=== PATIENT | female | born 1970 | race Caucasian/White ===

== ENCOUNTER → 2017-10-22 13:20 | Outpatient (CLI) | payer OTHER, SELFPAY ==
--- NOTE | 2017-10-22 13:21 | HPBI_ITS ---
MAMMOGRAPHY - BILATERAL DIAGNOSTIC REASON FOR EXAM: Female, 47 years old. Left upper outer quadrant pain. Bilateral breast implants. PERTINENT HISTORY: TECHNIQUE: Digital bilateral breast meghna (3D mammographic acquisition) in the CC and MLO projections. 2-D mediolateral oblique (MLO) and craniocaudad (CC) views of both breasts were obtained. CAD: Full Field Digital Mammography with Computer Added Detection was performed. COMPARISON: Comparison is made with prior outside examination dated March 19, 2017. FINDINGS: Breast Composition: The breasts are heterogeneously dense, which may obscure small masses. There are no dominant masses or suspicious calcifications. Stable appearance of the bilateral breast prostheses. No other significant abnormalities are identified. There has been no significant change since the prior study. HPBI/DIAG MAMM W/CAD, BILAT IMPRESSION: Stable bilateral diagnostic mammogram. With the patient's history of pain in the upper outer quadrant of the left breast, correlation with ultrasound is recommended. ASSESSMENT CATEGORY: BIRADS Category 0: Incomplete. Need additional imaging evaluation. A letter regarding these results will be sent to the patient by the facility within 30 days. Approximately 10% of breast cancers are not detected by mammography. A normal mammogram should not delay biopsy of a clinically suspicious abnormality. Electronically Signed: Porter Engle MD at 14:41 EST Tel [phone], Service support ,
--- NOTE | 2017-10-22 13:21 | US_ITS ---
STUDY: ULTRASOUND BREAST - LEFT REASON FOR EXAM: Female, 47 years old. Left axillary pain. TECHNIQUE: Axial and longitudinal images of the LEFT breast were performed with a high resolution ultrasound transducer. COMPARISON: Comparison is made with prior mammogram done earlier today. FINDINGS: LEFT Breast: There is a 1.7 cm x 0.4 cm x 0.6 cm benign appearing lymph node in the axillary region of the breast. A breast implant is seen. US/Breast Limited Unilateral IMPRESSION: Benign appearing lymph node in the left axillary region. ASSESSMENT CATEGORY: BIRADS Category 2: Benign. A letter regarding these results will be sent to the patient by the facility within 30 days. Electronically Signed: Porter Engle MD at 15:01 EST Tel [phone], Service support ,
== END ==
PROVIDERS: Family Provider Family Medicine; PCP Family Medicine; Visit Provider Nurse Practitioner Women's Health
DX: N64.4 Mastodynia (principal); Z98.82 Breast implant status
CPT/HCPCS: 76642; 77062; 77066; G0279

== ENCOUNTER → 2018-07-01 14:09 | Outpatient (CLI) | payer OTHER, SELFPAY ==
--- NOTE | 2018-07-01 14:13 | VDLE_ITS ---
Reason For Study: LLE Pain RIGHT LEFT CFV is compressible, spontaneous, phasic, GSV is normal. competent and demonstrates normal CFV is compressible, spontaneous, phasic, augmentation. competent, and demonstrates normal Procedure augmentation. Exam performed in department. FV is compressible, spontaneous, phasic, A preliminary report was called and/or faxed competent and demonstrates normal to [place]. augmentation. POP V is compressible, spontaneous, phasic, competent and demonstrates normal augmentation. T/P Trunk is compressible. PTV is compressible. LT PerV is compressible. Nonvascular structure noted in Lt Pop Fossa measuring 0.91 x 1.84 x 2.44 cm. <> Interpretation Summary Deep veins of the left lower extremity are patent and compressible segmentally. There is no evidence of left lower extremity deep vein thrombosis. Valvular competence appears intact within the proximal deep venous system on the left . The left greater saphenous vein appears patent and compressible segmentally. A non-vascular, hypoechoic structure is noted in the left popliteal space, measuring 0.91 cm x 1.84 cm x 2.44 cm. This probably represents a popliteal cyst. Clinical correlation is advised. Ordering Physician: Tu Argueta Referring Physician: Tu Argueta Performed By: Zelda Conklin RVT and Student
== END ==
PROVIDERS: Family Provider Family Medicine; PCP Family Medicine; Referring Provider Physician Assistant Surgical; Visit Provider Physician Assistant Surgical
DX: M79.662 Pain in left lower leg (principal)
CPT/HCPCS: 93971

== ENCOUNTER 2018-07-24 15:30 | Outpatient (RCR) | payer OTHER, SELFPAY ==
--- NOTE | 2018-06-19 17:26 | HP.PTEVAL_ITS ---
Patient's Visit Information RACHID YOUNG is a 48 year old F referred to Physical Therapy by Kika Faustin with a diagnosis of chest wall pain. Date of Evaluation: 06/19/18 Physical Therapist: Rosio Clements - Visit Plan Frequency: 2x /Week Duration: 3 Weeks Plan: 2X/ week for 3 weeks for chest wall stretches, shoulder flexion stretches, US and MT to the intercostals of rib 3-4 B, postural exercises, scapular strength with HEP. ++Pt does have breast implants.....Do not US sternum just ribs. - Subjective Subjective: First of this year... was having some chest pain and mamogram was fine and US under the L arm and that came back fine. She feels like it is in her chest wall and some stress and tenderness in shoulders. They did an x-ray of chest and that came back fine. She has mid trap pain and shoulder blade pain and feels between her shoulder blades. SHe has no N &T or weakness. 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 screens are eye level. Pt reports that she prob never had great posture. Her pain wakes her up at night when she turns to her L side. It is more of a dull ache. - Pain neck pain Pain Intensity (Out of 10): 2 chest wall Pain Intensity (Out of 10): 5 - Objective AROM: full shoulder AROM. B shld MMT: flex 4/5 B, Abd B 4/5, ER B 4/5, IR 4- /5 B. Palpation: Tender to palpation between the 3-5th ribs B along the intercostal muscles and at the attachments to the sternum. c-spine AROM: flex 100%, Rot B 100%, SB B 100%, Ext 75%. Posture: sits with slightly rounded shoulders. No tenderness along the thoracic spine - Goals Goal 1:: I HEP Goal Time Frame: 4-6 Weeks Goal 2:: Decrease pain to occ 1/10 pain at the end of the day. Goal Time Frame: 4-6 Weeks Goal 3:: Sit with upright posture during work day per subjective Goal Time Frame: 4-6 Weeks Goal 4:: Demonstrate proper posture during treatment sessions Goal Time Frame: 4-6 Weeks - Rehabilitation Potential Rehabilitation Potential: Good - Anticipated Interventions Thank you for the opportunity to evaluate your patient. For Medicare and Medicare HMO plans, please review the plan of care and approve it. It will need to be FAXED BACK to us at [phone] for Medicare purposes. Please let me know if there are questions or concerns regarding this plan of care. Physician Signature: Date:
--- NOTE | 2018-07-24 15:46 | HP.PTDCSUM ---
HP - PT D/C Summary It has been my pleasure to treat RACHID YOUNG under orders from Kika Faustin, for the diagnosis of chest wall pain for a total of 7 visit(s). Discharge Date: 07/24/18 Please see the following information for a summary of their discharge status. - Subjective Subjective: Pt switched out the mattress and she has not had pain since then which was 07-17-18. She has changed her work station.... Pt will continue with HEP as she has been. Pt reports that she has rearranged her office and is watching her posture - Pain neck pain Pain Intensity (Out of 10): 0 chest wall Pain Intensity (Out of 10): 0 - Overall Improvement % Improvement: 100 - Objective Objective/Function: Pt sits with good posture duriing treatment sessions - Goals Goal 1:: I HEP Goal Progress: Goal Met Goal 2:: Decrease pain to occ 1/10 pain at the end of the day. Goal Progress: Goal Met Goal 3:: Sit with upright posture during work day per subjective Goal Progress: Goal Met Goal 4:: Demonstrate proper posture during treatment sessions Goal Progress: Goal Met - Plan Plan: Pt will call in within 3 weeks and let me know if her pain comes back. If it doesnt we will discharge her at that time. - D/C Information Discharge Comments: DC to HEP. Issued green band to continue with HEP If there are questions or concerns regarding this patient's physical therapy, please feel free to call me at [phone]. Thank you for the referral of this patient. Sincerely, Rosio Clements
== END 2018-07-24 19:00 | disposition home or self-care (01) ==
LOC: PT 15:30
PROVIDERS: Family Provider Family Medicine; PCP Family Medicine; Referring Provider Family Medicine; Visit Provider Family Medicine
DX: R07.89 Other chest pain (principal); R07.1 Chest pain on breathing
CPT/HCPCS: 97035; 97110; 97140; 97161; 97530

== ENCOUNTER → 2018-09-20 10:48 | Outpatient (CLI) | payer OTHER, SELFPAY ==
[2017-10-11 14:55] VITALS: BMI 19.3
--- NOTE | 2018-09-20 11:00 | EKG12_ITS ---
Test Reason : PREOP Blood Pressure : / mmHG Vent. Rate : 061 BPM Atrial Rate : 061 BPM P-R Int : 148 ms QRS Dur : 084 ms QT Int : 400 ms P-R-T Axes : 067 088 074 degrees QTc Int : 402 ms Normal sinus rhythm Normal ECG Confirmed by RAUDEL VAUGHAN, TAVIA ([id number]), writer editor SMITH GARCIA ([id number]) on 09/24/2018 8:48:21 AM Referred By: Kelvin Howell Confirmed By:TAVIA STARKS MD
[2018-09-20 11:27] LABS: Hematocrit 43.1 % (37-47); Hemoglobin 14.1 g/dl (12.0-15.0); Mean Corp Hgb Conc 32.7 g/gl (32-36); Mean Corpuscular Hgb 31.7 pg (27.0-32.0); Mean Corpuscular Volume 96.9 fL (81-99); Mean Platelet Vol. 11.5 fl (6.2-12.0); Platelet Count 230 K/mm3 (150-450); RBC Distribution Width CV 12.2 % (11.6-14.6); RBC Distribution Width SD 43.3 fl (35.1-43.9); Red Blood Count 4.45 M/mm3 (4.2-5.4); White Blood Count 5.4 K/mm3 (4.4-11.0)
[2018-09-20 11:30] LABS: Scan Indicated on CBC? Y/N NO
[2018-09-20 11:47] LABS: Anion Gap 8 (5-15); BUN 12 mg/dL (7-18); BUN/Creat Ratio 17.5 RATIO (10-20); Calcium,Total 8.8 mg/dL (8.5-10.1); Chloride 106 mmol/L (98-107); Creatinine, Serum 0.68 mg/dL (0.55-1.02); EST Glomerular Filtration Rate 98 mL/min (>60); Est Glom Filt Rate - Afr Amer 118 mL/min (>60); Glucose 77 mg/dL (74-106); Potassium 3.9 mmol/L (3.5-5.1); Sodium Level 143 mmol/L (136-145)
== END ==
PROVIDERS: Family Provider Family Medicine; PCP Family Medicine; Referring Provider Orthopaedic Surgery; Visit Provider Orthopaedic Surgery
DX: Z01.818 Encounter for other preprocedural examination (principal); Z01.810 Encounter for preprocedural cardiovascular examination
CPT/HCPCS: 36415; 80048; 85027; 93005

== ENCOUNTER 2018-11-13 15:30 | Outpatient (RCR) | payer OTHER, SELFPAY ==
--- NOTE | 2018-10-02 13:24 | HP.PTEVAL ---
Patient's Visit Information RACHID YOUNG is a 48 year old F referred to Physical Therapy by Kelvin Howell DO with a diagnosis of L medial menisectomy. Date of Evaluation: 10/02/18 Physical Therapist: Kane Sims DPT - Visit Plan Frequency: 2-3x /Week Duration: 4-6 Weeks Plan: Start with ROM of L knee including heel slides, heel prop, cycling progressing to full revolutions as tolerated, add in quad/HS/glute med activation as tolerated. Progress normalized gait pattern. May use ice/vaso as needed. - Subjective Findings: Pt. is here today for here initial evaluation with diagnosis of tear of the medial meniscus of L knee. Pt. did have surgery on Sep 25, 2018. Pt. reports not knowing how she injured it, but has been increasing in pain. Pt. reports doing some exercises since surgery, but has been icing a lot. Pt. is taking tylenol x2 per day. Pt. denies N/T in either LE. Pt. arrives today walking without AD. Pt. reports increased pain with walking and moving, but is tolerable. 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 Pt. works in [employer], and is up and down a lot at work. Pt. is hopeful to reduce symptoms in order to get back to all recreational and work activities without limitations. - Pain L knee Pain Intensity (Out of 10): 2 Pain Intensity Range: 1, 4 - Objective POSTURE: Pt. has slight increase in R lateral lean, Pt. lacks TKE on LLE in stance. PALPATION: Pt. has normal healing incisions at medial knee. Pt. has no signs of infection. Negative bib's sign. NEURO: all normal no issues with sensation of DTR. ROM: L knee 0-5-98deg. PROM 0-2-102deg. Pt. has increased soreness at end ranges. MMT: Pt. is able to complete quad set with SLR, but has ~5-10deg extensor lag, Did not test HS this date. Pt.has 4/5 hip abduction. GAIT: Pt. ambulates without AD. Pt. lacks TKE on LLE during stance phase. Pt. reports mild increase in symptoms during L stance phase. STAIRS: Pt. is able to complete with step to pattern, loading RLE only. - Goals Goal 1:: Pt. to be I with HEP. Goal Time Frame: 4-6 Weeks Goal 2:: Pt. to have increased L knee ROM to 0-0-130deg without increase in symptoms. Goal Time Frame: 4-6 Weeks Goal 3:: Pt. to walk with normalized pattern without increase in symptoms. Goal Time Frame: 4-6 Weeks Goal 4:: Pt. to negotiate steps with reciprocal pattern without increase in symptoms. Goal Time Frame: 4-6 Weeks Goal 5:: Pt. have increased LLE strength by 1/2 grade of all effected musculature. Goal Time Frame: 4-6 Weeks - Rehabilitation Potential Physical Therapy Diagnosis: Pt. has signs and symptoms S/P menisectomy. Pt. has subsequent hypombility, weakness, increased pain and difficulty walking. Pt. would benefit from PT to address above limitations progressing back to all ADLs and functional mobility without limitations. Rehabilitation Potential: Excellent - Anticipated Interventions Patient/Client Instruction: Educate patient on: Condition, Plan of Care, Risk Factors, Benefits of Fitness Program For the Purpose of:: To improve decision making, To facilitate caregiver knowledge, To improve self management, To prevent re-injury, To improve ability to perform tasks related to life management, To improve tolerance to ADL's Therapeutic Exercise to Include: Strength training, Power training, Balance training, Body mechanics, Postural training, Flexibilty training, Gait and locomotor training, Passive ROM, Active ROM, Dynamic Lumbar Stabilization For the Purpose of:: To decrease pain, To decrease swelling/inflammation, To increase ROM, To improve nutrient delivery to tissue, To increase oxygenation perfusion, To improve muscle performance and motor function, To improve ability to perform ADL's, To increase tolerance to activity/condition/position, To improve performance and independence with ADL's, To improve ability of physical actions for home/community/work/leisure, To improve gait and locomotor functions, To improve health of tissue Manual Therapy Techniques to Include: Mobilization, Passive ROM, Functional dry needling For the Purpose of:: To decrease pain, To decrease swelling/inflammation, To increase ROM IF ES: Yes Other electric stimulation: Yes Cryotherapy (ice pack, ice massage): Yes Vasopneumatic device: Yes For the Purpose of:: To decrease pain, To decrease swelling/inflammation, To increase ROM Thank you for the opportunity to evaluate your patient. For Medicare and Medicare HMO plans, please review the plan of care and approve it. It will need to be FAXED BACK to us at [phone] for Medicare purposes. For Medicare only, by signing this I certify the plan of care. Please let me know if there are questions or concerns regarding this plan of care. Physician Signature: Date:
--- NOTE | 2018-10-29 14:59 | HP.PTREVAL ---
Kelvin Howell, DO, It has been my pleasure to treat RACHID YOUNG over the last 9 visits for L medial menisectomy. Please see the progress note below for an update on the physical therapy plan of care! Subjective: Pt. reports I am like 75% better overall. pt. reports a continued feeling of tightness, but is improving. She is back to work without increase in symptoms. Pt. reporst no pain pre treatment this date. She does report occassional pain with stairs. Objective/Function: Pt. tolerated all PT without adverse reaction. She continues to progress very well. ROM: 0-0-129deg. Mild soreness stiffness at end ranges of motions. MMT: LLE- ankle 5/5 throughout; knee- ext 4/5, flexion 4/5; hip- flexion 4+/5, abd 4+/5, ext 4+/5. GAIT: Pt. ambulates with out AD, but does have reduced knee ext during stance phase, slightly. Pt. also has a tendency to have reduced knee flexion during swing phase. Pt. has occassional increase in medial knee pain, when I step wrong. Disscussed with patient about healing process and what movements to avoid. Plan Plan: At this point in time I would recommend that she continue with PT with focus on increased resistances with biking, quad/core strengthening with gradual progression back to functional mobiluty and normalized gait patterns. Goals Goal 1:: Pt. to be I with HEP. Goal Time Frame: 4-6 Weeks Goal Progress: Goal Met Goal 2:: Pt. to have increased L knee ROM to 0-0-130deg without increase in symptoms. Goal Time Frame: 4-6 Weeks Goal Progress: Progressing Goal 3:: Pt. to walk with normalized pattern without increase in symptoms. Goal Time Frame: 4-6 Weeks Goal 4:: Pt. to negotiate steps with reciprocal pattern without increase in symptoms. Goal Time Frame: 4-6 Weeks Goal Progress: Progressing Goal 5:: Pt. have increased LLE strength by 1/2 grade of all effected musculature. Goal Time Frame: 4-6 Weeks Goal Progress: Progressing Anticipated Interventions Patient/Client Instruction: Educate patient on: Condition, Plan of Care, Risk Factors, Benefits of Fitness Program For the Purpose of:: To improve decision making, To facilitate caregiver knowledge, To improve self management, To prevent re-injury, To improve ability to perform tasks related to life management, To improve tolerance to ADL's Therapeutic Exercise to Include: Strength training, Power training, Balance training, Body mechanics, Postural training, Flexibilty training, Gait and locomotor training, Passive ROM, Active ROM, Dynamic Lumbar Stabilization For the Purpose of:: To decrease pain, To decrease swelling/inflammation, To increase ROM, To improve nutrient delivery to tissue, To increase oxygenation perfusion, To improve muscle performance and motor function, To improve ability to perform ADL's, To increase tolerance to activity/condition/position, To improve performance and independence with ADL's, To improve ability of physical actions for home/community/work/leisure, To improve gait and locomotor functions, To improve health of tissue Manual Therapy Techniques to Include: Mobilization, Passive ROM, Functional dry needling For the Purpose of:: To decrease pain, To decrease swelling/inflammation, To increase ROM IF ES: Yes Other electric stimulation: Yes Cryotherapy (ice pack, ice massage): Yes Vasopneumatic device: Yes For the Purpose of:: To decrease pain, To decrease swelling/inflammation, To increase ROM Please do not hesitate to contact me at [phone] by phone or if you have questions or concerns regarding this new plan of care! Sincerely, Kane Sims DPT
--- NOTE | 2018-12-25 13:06 | HP.PTDCSUM ---
HP - PT D/C Summary It has been my pleasure to treat RACHID YOUNG under orders from Kelvin Howell DO, for the diagnosis of L medial menisectomy for a total of 11 visit(s). Discharge Date: 11/13/18 Please see the following information for a summary of their discharge status. - Subjective Subjective: Pt. reports she is doing very well with all of her HEP. Pt. reports no pain. Pt. reports being 95% better overall. Pt. to see physician next week. - Pain L knee Pain Intensity (Out of 10): 0 - Overall Improvement % Improvement: 95 - Objective Objective/Function: Pt. has progressed very well. Pt. is nolonger having any pain. She is to follow up with physician next week. Pt. is independent with her HEP and is back to all work activiteis without issues. Pt. has been educated to hold off on running for a few more months and progress with walk to run progress if pain free. Pt will be DC to HEP at this point in time. - Goals Goal 1:: Pt. to be I with HEP. Goal Progress: Goal Met Goal 2:: Pt. to have increased L knee ROM to 0-0-130deg without increase in symptoms. Goal Progress: Goal Met Goal 3:: Pt. to walk with normalized pattern without increase in symptoms. Goal Progress: Goal Met Goal 4:: Pt. to negotiate steps with reciprocal pattern without increase in symptoms. Goal Progress: Goal Met Goal 5:: Pt. have increased LLE strength by 1/2 grade of all effected musculature. Goal Progress: Goal Met - Plan Plan: Pt. to be Dc to HEP at this point in time. - D/C Information Discharge Comments: Pt. was treated for her menisectomy. Pt. was treated with ROM and knee stability exercises. Pt. progressed very well and is back to all work activities. She has yet to start running, but was educated to hold off for a few more months and progress with a walk to run program. She is independent with her current HEP and will be DC from PT at this point intime. If there are questions or concerns regarding this patient's physical therapy, please feel free to call me at [phone]. Thank you for the referral of this patient. Sincerely, Kane Sims DPT
== END 2018-11-13 19:00 | disposition home or self-care (01) ==
LOC: PT 15:30
PROVIDERS: Family Provider Family Medicine; PCP Family Medicine; Referring Provider Orthopaedic Surgery; Visit Provider Orthopaedic Surgery
DX: S83.242D Other tear of medial meniscus, current injury, left knee, subsequent encounter (principal)
CPT/HCPCS: 97110; 97161

== ENCOUNTER → 2019-01-14 17:10 | Outpatient (CLI) | payer OTHER, SELFPAY ==
--- NOTE | 2019-01-14 | CER_PTH ---
PATIENT: RACHID YOUNG LOC: [facility] U#:[id number] AGE/SX: 55/F ROOM: RE01/14/[address]: Dr. Suzan Oswald MD : 1970 BED: DIS: SPEC #: [id number] RECD: 01/14/19 16:46 STATUS: AMY DAWNShelley #: [id number] HELENA: 01/14/19 00:[address]: Suzan Oswald DEPT: SURGICAL PATHOLOGY RECD BY: Segundo Wilkes ENTERED: 01/15/19 09:28 SP TYPE: CERV OTHR DR: Dr. Kika Faustin MD Tissues: Uterine cervix, NOS Procedures: Surgery Specimen Level IV HEADER OPERATION: Cervical polyp PRE-OP DIAGNOSIS: Cervical polyp TISSUE SUBMITTED: Cervical polyp MICROSCOPIC DIAGNOSIS Cervical polyp, polypectomy: Benign endocervical polyp, inflamed. AM:halley 01/16/19 MICROSCOPIC DESCRIPTION Slides are reviewed. GROSS DESCRIPTION Received is one container labeled with the patient's name and not further designated. The specimen consists of one irregular fragment of light doran soft tissue that measures 2.2 x 0.8 x 0.2 cm. The specimen is totally submitted in one cassette. / AM:halley 01/15/19 TC:1 CPT: 99303
[2019-01-14 11:03] VITALS: BMI 20.3
[2019-01-22 16:40] LABS: HPV APTIMA, High Risk Negative (Negative)
== END ==
PROVIDERS: Family Provider Family Medicine; PCP Family Medicine; Referring Provider Obstetrics & Gynecology; Visit Provider Obstetrics & Gynecology
DX: Z12.4 Encounter for screening for malignant neoplasm of cervix (principal); N84.1 Polyp of cervix uteri
CPT/HCPCS: 87624; 88175; 88305; G0145

== ENCOUNTER → 2019-01-28 11:08 | Outpatient (CLI) | payer OTHER, SELFPAY ==
[2019-01-14 11:03] VITALS: BMI 20.3
--- NOTE | 2019-01-28 11:09 | US_ITS ---
HISTORY: Pelvic pain. History of polyps. 90 images. No prior imaging before January 28, 2019 of the pelvis. Findings: The cervix is closed. The uterus measures 10.6 x 4.9 x 7.9 cm. The cervix is closed. No large masses or fluid collections are perceived. The right ovary measures 4.2 x 2.6 x 2.3 cm. Color Doppler imaging fails to demonstrate flow to right ovarian parenchyma. Positive Doppler imaging suggests flow to right ovarian parenchyma. Right ovarian follicles are present. Stripe is measured at 14 mm. Myometrium is heterogeneous. Within the myometrium, anteriorly, abutting the urinary bladder, there is a slightly hypoechoic but homogeneous structure that measures 19 x 15 x 18 mm. Color Doppler images demonstrate flow within this structure. Is likely a subserosal uterine leiomyoma. More posteriorly within the uterus there is another structure that measures 2.2 x 1.5 x 2.4 cm. Color Doppler imaging fails to demonstrate flow on this echogenic structure with shadowing. This likely represents myometrial calcified uterine leiomyoma. Within the uterine fundus, anteriorly, there is another structure. This measures 3.5 x 3 x 2.8 cm. It demonstrates flow on color Doppler imaging. This also likely represents a uterine leiomyoma. The left ovary measures 4.9 x 2.7 x 2.7 cm. Color Doppler imaging doesn't demonstrate flow within this structure. Pulse-wave Doppler imaging suggest probable flow within this structure. There is an echogenic portion of tissue within this structure likely representing calcification. US/Transvaginal Non- IMPRESSION: Uterine leiomyomata. at 0230 Reported and signed by: Dakota Higgins MD Electronically Signed: Dakota Higgins MD at 2:29 EDT Tel , Service support ,
--- NOTE | 2019-01-28 11:09 | US_ITS ---
HISTORY: Pelvic pain. History of polyps. 90 images. No prior imaging before January 28, 2019 of the pelvis. Findings: The cervix is closed. The uterus measures 10.6 x 4.9 x 7.9 cm. The cervix is closed. No large masses or fluid collections are perceived. The right ovary measures 4.2 x 2.6 x 2.3 cm. Color Doppler imaging fails to demonstrate flow to right ovarian parenchyma. Positive Doppler imaging suggests flow to right ovarian parenchyma. Right ovarian follicles are present. Stripe is measured at 14 mm. Myometrium is heterogeneous. Within the myometrium, anteriorly, abutting the urinary bladder, there is a slightly hypoechoic but homogeneous structure that measures 19 x 15 x 18 mm. Color Doppler images demonstrate flow within this structure. Is likely a subserosal uterine leiomyoma. More posteriorly within the uterus there is another structure that measures 2.2 x 1.5 x 2.4 cm. Color Doppler imaging fails to demonstrate flow on this echogenic structure with shadowing. This likely represents myometrial calcified uterine leiomyoma. Within the uterine fundus, anteriorly, there is another structure. This measures 3.5 x 3 x 2.8 cm. It demonstrates flow on color Doppler imaging. This also likely represents a uterine leiomyoma. The left ovary measures 4.9 x 2.7 x 2.7 cm. Color Doppler imaging doesn't demonstrate flow within this structure. Pulse-wave Doppler imaging suggest probable flow within this structure. There is an echogenic portion of tissue within this structure likely representing calcification. US/Pelvic (Non ) IMPRESSION: Uterine leiomyomata. at 0230 Reported and signed by: Dakota Higgins MD Electronically Signed: Dakota Higgins MD at 2:29 EDT Tel , Service support ,
== END ==
PROVIDERS: Family Provider Family Medicine; PCP Family Medicine; Referring Provider Obstetrics & Gynecology; Visit Provider Obstetrics & Gynecology
DX: N84.2 Polyp of vagina (principal)
CPT/HCPCS: 76830; 76856; 93976

== ENCOUNTER → 2019-02-05 07:08 | Outpatient (CLI) | payer OTHER, SELFPAY ==
[2019-01-14 11:03] VITALS: BMI 20.3
[2019-02-04 12:01] VITALS: BMI 20.3
--- NOTE | 2019-02-05 07:27 | BI_ITS ---
MAMMOGRAPHY - BILATERAL SCREENING REASON FOR EXAM: Female, 48 years old. Routine annual screening examination. PERTINENT HISTORY: Grandmother with breast cancer. Breast implants. TECHNIQUE: Digital bilateral breast mic (3D mammographic acquisition) in the CC and MLO projections. 2-D mediolateral oblique (MLO) and craniocaudad (CC) views of both breasts were obtained. CAD: Full Field Digital Mammography with Computer Added Detection was performed. COMPARISON: Comparison is made with prior outside examination dated September 19, 2016. FINDINGS: Breast Composition: The breasts are heterogeneously dense, which may obscure small masses. There are no dominant masses or suspicious calcifications. Stable appearance of the bilateral breast implants. No other significant abnormalities are identified. There has been no significant change since the prior study. BI/SCREEN MAMM (CAD) W/MIC BILAT IMPRESSION: Stable bilateral screening mammogram. Yearly follow-up mammogram recommended. (A) ASSESSMENT CATEGORY: BIRADS Category 2: Benign. A letter regarding these results will be sent to the patient by the facility within 30 days. Approximately 10% of breast cancers are not detected by mammography. A normal mammogram should not delay biopsy of a clinically suspicious abnormality. [id number] Electronically Signed: Porter Engle, at 8:49 EDT , Service support ,
== END ==
PROVIDERS: Family Provider Family Medicine; PCP Family Medicine; Referring Provider Obstetrics & Gynecology; Visit Provider Obstetrics & Gynecology
DX: Z12.31 Encounter for screening mammogram for malignant neoplasm of breast (principal)
CPT/HCPCS: 77063; 77067

== ENCOUNTER 2019-05-29 06:23 | Day surgery (SDC) | payer OTHER, SELFPAY ==
[2019-02-04 12:01] VITALS: BMI 20.3
[2019-05-19 10:52] VITALS: BMI 20.3
--- NOTE | 2019-05-22 04:52 | HP.PCM_ITS ---
- Problem List (1) Abnormal uterine bleeding Status: Acute Comment: plan LAVH LUQ entry (2) Intramural uterine fibroid Status: Acute Comment: discussedlysteda, depot lupron, or lavh discussed. handouts given. 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 Is patient in pain?: No Allergies amoxicillin Allergy (Mild, Verified 02/04/19 12:00) Other clavulanic acid [From Augmentin] Allergy (Mild, Verified 02/04/19 12:00) Other erythromycin base Allergy (Mild, Verified 02/04/19 12:00) Other tramadol Adverse Reaction (Mild, Verified 05/19/19 10:51) other Medications cholecalciferol (vitamin D3) 2,000 unit capsule 2,000 unit PO ONCE 10/11/17 [History Confirmed 05/19/19] Is last menstrual period known: No Post menopausal: No Patient : No : No FORMERLY [facility], 1928–1983 Medical History (Updated 05/19/19 @ 11:11 by Suzan Oswald MD) Costochondral chest pain (Acute) Surgical History (Updated 05/19/19 @ 11:09 by Suzan Oswald MD) H/O abdominoplasty (Acute) delivery delivered (Acute) History of umbilical hernia repair (Acute) Hx of breast implants, bilateral (Acute) Family History Mother Thyroid disorder Unknown Thyroid disorder Father Dementia Hypertension CVA (cerebral vascular accident) Social History (Updated 05/19/19 @ 11:16 by Suzan Oswald MD) Smoking Status: Never smoker alcohol intake: current details: social substance use type: does not use caffeine: Yes frequency: 1-2 times per week seatbelt use: always do you feel safe at home: Yes additional social history: [facility] [facility] [employer] Patient works at [employer] pre op ERAS: Details: RACHID YOUNG is a 49 year old who presents for uterine fibroids abnormal uterine bleeding. Pregancy History 2 Elective abortions Hx Para 2 Spontaneous abortions Hx # Term Pregnancies Ectopic pregnancies Hx # Pregnancies Multiple births # of living children Past Pregnancies Del. Date Name GA/Weeks Outcome Route Bth Weight Infant Gen Labor Lgth Anesthes ia Del Locatn Provider FOB Unknown 1997 Noa Male Unknown 2002 Praneeth Male ROS Const Constitutional: Reports fatigue; denies fever(s), headache(s), increased appetite, poor appetite, weight gain or weight loss ENT ENT: Denies dry mouth GI GI: Reports as per HPI; denies abdominal pain, constipation, nausea or vomiting : Denies nipple discharge Skin Skin/Breast: Denies nipple discharge Exam Const General: cooperative, healthy appearing, comfortable, no acute distress, well developed Nutritional Appearance: average body habitus Orientation: alert HENMT Head: normal to inspection, normocephalic Ears: hearing grossly normal bilaterally, external ears normal Nose: external nose normal, nares normal Face and sinus: normal facial exam Neck Neck: normal visual inspection, no lymphadenopathy, trachea midline Thyroid: thyroid normal Resp Effort & Inspection: normal respiratory effort Musc Other: gross motor intact no deficits, full bilateral strength Skin General: no rashes or lesions noted Neuro Motor: muscle tone normal throughout Assessment & Plan Problems 1. Intramural uterine fibroid D25.1 discussedlysteda, depot lupron, or lavh discussed. handouts given. needs EMB prior to LAVH BS cysto if she desires surgical intervention 2. Abnormal uterine bleeding N93.9 plan LAVH LUQ entry Plan After discussing the patient's diagnosis and treatment plan options, patient wishes to proceed with surgical management. I have discussed with the patient the risks, benefits, and alternatives of the procedure which include but are not limited to risks of anesthesia, bleeding, infection, possible damage to bowel, bladder, or surrounding vasculature which could lead to additional surgery to evaluate any complications. Patient agrees to procedure and wishes to proceed. ACOG/uptodate references given for additional information regarding procedure. Coding Level of Care Code No Charge Diagnoses Intramural uterine fibroid D25.1 Abnormal uterine bleeding N93.9
[2019-05-29] VITALS (16 sets, daily range): BP systolic 106–142; BP diastolic 57–82; PULSE 56–80; RESP 14–20; TEMP 36.3–37.1; O2SAT 98–100; BMI 19.8
[2019-05-29 06:51] LABS: Bedside Glucose 128 mg/dL (70-110)
[2019-05-29 06:52] LABS: Internal QC Validated? YES +Cl - CLEAR BKGD
[2019-05-29] MEDS: Bupivacaine 0.25% 30 ML Vial (06:52)
[2019-05-29 06:53] LABS: Pregnancy, Urine Negative Negative
[2019-05-29 07:03] LABS: Hematocrit 44.5 % (37-47); Hemoglobin 14.4 g/dL (12.0-15.0); Mean Corp Hgb Conc 32.4 g/dL (32-36); Mean Corpuscular Hgb 31.2 pg (27.0-32.0); Mean Corpuscular Volume 96.5 fL (81-99); Mean Platelet Vol. 12.2 fl (6.2-12.0); Platelet Count 187 K/mm3 (150-450); RBC Distribution Width CV 11.9 % (11.6-14.6); RBC Distribution Width SD 41.9 fl (35.1-43.9); Red Blood Count 4.61 M/mm3 (4.2-5.4); White Blood Count 5.5 K/mm3 (4.4-11.0)
[2019-05-29] MEDS: Magnesium Sulfate 4gm/100mL 4 GM/100 ML IV.SOLN. IV (07:03)
[2019-05-29] MEDS: Lactated Ringers 1,000 ML 40 ML IV (07:04)
[2019-05-29] MEDS: Enoxaparin 40 MG/0.4 ML Syringe SC (07:04)
[2019-05-29] MEDS: dexAMETHasone 10 MG/ML Vial 8 MG IV (07:04)
[2019-05-29] MEDS: Scopolamine 1mg/72hr Patch 1 PATCH TRANSDERM. (07:05)
[2019-05-29] MEDS: Phenazopyridine 95 MG Tablet 190 MG PO (07:05)
[2019-05-29] MEDS: Acetaminophen 500 MG Tablet 1000 MG PO ×2 (07:06→14:42)
[2019-05-29] MEDS: Gabapentin 600 MG Tablet PO (07:06)
[2019-05-29] MEDS: Celecoxib 200 MG Capsule 400 MG PO (07:06)
--- NOTE | 2019-05-29 08:30 | HYST_PTH ---
PATIENT: RACHID YOUNG LOC: [facility] [place] U#:[id number] AGE/SX: 49/F ROOM: RE05/29/[address]: Dr. Suzan Oswald MD : 1970 BED: DIS: 05/30/2019 SPEC #: [id number] RECD: 05/29/19 13:17 STATUS: AMY REShelley #: [id number] HELENA: 05/29/19 08:[address]: Suzan Oswald DEPT: SURGICAL PATHOLOGY RECD BY: Segundo Wilkes ENTERED: 05/29/19 13:45 SP TYPE: HYSTERECT OTHR DR: Dr. Kika Faustin MD Tissues: Uterus, NOS Procedures: Surgery Specimen Level V HEADER OPERATION: ERAS, hysterectomy, lap-assisted vaginal, bilateral salpingectomy PRE-OP DIAGNOSIS: Intramural uterine fibroid TISSUE SUBMITTED: Uterus, cervix and bilateral fallopian tubes MICROSCOPIC DIAGNOSIS Uterus, hysterectomy: Cervix - nabothian cysts. Endometrium - secretory endometrium. Myometrium - leiomyomas and adenomyosis. Right and left fallopian tubes with focal hydrosalpinx. AM:halley 05/30/19 MICROSCOPIC DESCRIPTION Slides are reviewed. GROSS DESCRIPTION Received in fixative is one container labeled with the patient's name and designated uterus, cervix and bilateral fallopian tubes. The specimen consists of a hysterectomy specimen consisting of uterus with cervix and bilateral fallopian tubes in multiple pieces. The fallopian tubes are attached to the largest piece of uterus. The uterus with cervix weighs in aggregate 392 gm. One of the pieces consists of cervix with lower uterine segment. The cervix in this piece measures 4.5 x 2.5 x 2 cm. The ectocervical mucosa is unremarkable. The external os is oval in contour. The endocervical canal measures 4 cm in length and the endocervical mucosa is doran, glistening and unremarkable. A portion of the lower uterine segment in this piece measures 5 x 2.5 x 3 cm. A nodular mass is noted in this piece. The largest piece of the uterus measures 12 x 8 x 8 cm. The serosal surface is doran, glistening. Sections of this piece reveal a focal area of endometrial cavity and the endometrium measures 0.2 cm in thickness. Sections also reveal multiple nodular masses. The largest mass measures 6 cm in greatest dimension. Sections of additional smaller pieces of uterus also reveal multiple nodular masses. Sections of these masses reveal doran whorled cut surfaces without areas of hemorrhage, necrosis or cystic degeneration. The uterine wall measures up to 4 cm in thickness. The fallopian tube could not be oriented due to the fragmented nature of the uterus. One of the fallopian tubes measures 6 cm in length and 3.5 cm in diameter. The piece is interrupted in the middle consistent with previous tubal ligation. The tubal end is identified. Sections reveal unremarkable cut surfaces. A focal area of fallopian tube also reveals a lumen filled with bloody fluid. The second fallopian tube measures 4 cm in length and 0.5 cm in diameter. The fimbrial end is identified. Sections reveal unremarkable cut surfaces. Roll Machine Operator sections are submitted in 11 cassettes as follows: 1 - anterior cervix, 2 - posterior cervix, 3-6 - uterine wall, 7 - largest nodular mass, 8 - second largest nodular mass, 9 - smaller nodular masses, 10 & 11 - bilateral fallopian tubes with each cassette containing one fallopian tube. / SJ:rg 05/29/19 TC: 1 CPT: 89428
--- NOTE | 2019-05-29 08:52 | OP.PCM_ITS ---
Problem List (1) Abnormal uterine bleeding Status: Acute Comment: plan LAVH LUQ entry (2) Intramural uterine fibroid Status: Acute Comment: discussedlysteda, depot lupron, or lavh discussed. handouts given. needs EMB prior to LAVH BS cysto if she desires surgical intervention Report of Operation Date of Procedure: 05/29/19 Pre-Operative Diagnosis: uterine fibroids Post-Operative Diagnosis: same desnse vesicouterine adhesions Surgery/Procedure Performed:: lavh bs cysto adhesiolysis Description of Surgical Findings:: Dense vesicouterine adhesions enlarged 16 cm uterus with multiple fibroids normal ovaries bilaterally increased vasculature. Bilateral ureteral patency and normal bladder certified legal secretary specialist: Misa Lazar Type of Anesthesia:: General Special Medications: surgicel Specimen's removed: uterus tubes Drains: villarreal Estimated Blood Loss (mL): 150 Fluids Replaced: Crystalloid Description of Procedure: Patient received preoperative antibiotics and SCDs were on preoperatively. Patient was taken back to the operating room and placed in the dorsal lithotomy position. General anesthesia was induced and patient was prepped and draped in normal sterile fashion. Uterine manipulator was placed inside the uterus and Villarreal catheter placed in the bladder. The umbilicus was grasped with towel clamps and an intraumbilical incision was made after injecting with quarter percent Marcaine and a Veress needle entered into the abdomen confirmed to be intra-abdominal with a low opening pressure. Abdomen was insufflated with CO2 gas and the Veress needle removed and the 5 mm trocar was placed under direct visualization without complication. Right and left lower quadrants were transilluminated and injected with quarter percent Marcaine and 5 mm ports placed under direct visualization. Pelvis was well visualized see operative findings for additional information. Bilateral fallopian tubes were identified and transected with the LigaSure device across the mesosalpinx to the level of the utero-ovarian ligament which was also transected with the LigaSure device. The broad ligament was opened up by transecting the round ligament bilaterally and skeletonizing the uterine vessels bilaterally and creating a bladder flap using the LigaSure device. Extensive adhesio lysis was performed for approximately 40 minutes to dissect the bladder off of the lower uterine corpus. Increased vasculature was noted and taken down and skeletonized with the LigaSure device. The uterine arteries were transected bilaterally with good visualization of the bladder and the ureters were seen to be inferior lateral to the operative area. Attention was then paid to the vaginal portion of the procedure and the cervix was grasped with [place] clamps and circumferentially injected with dilute vasopressin. A circumferential incision was made and the vaginal mucosa was mobilized off posteriorly and the cul-de-sac entered into sharply and a longneck speculum placed. The anterior cul-de-sac was then identified and entered into sharply. The uterosacral ligaments were clamped cut and suture ligated with 0 Monocryl bilaterally followed by the cardinal ligaments which were clamped cut and suture ligated bilaterally with 0 Monocryl. The uterus serially descended and was removed without difficulty with minimal morcellation. Pelvic sidewall pedicles were checked and noted to have excellent hemostasis. The vaginal mucosa was reapproximated incorporating the posterior peritoneum. This was reapproximated using 0 Vicryl [id number] sutures. Excellent hemostasis was noted. The cystoscopy was then performed and bilateral ureteral strong spray was noted after the left apical cuff suture was removed and replaced. the bladder was noted to have no abnormality or lesions seen. Villarreal catheter was replaced and then attention paid to the abdominal portion of the procedure again. The pelvis and cul-de-sac was well visualized and no significant active bleeding noted but some raw areas were seen on the peritoneum and therefore Surgicel was applied. Pressure was taken down and the areas visualized and noted of excellent hemostasis. All ports were removed under direct visualization without complication and the abdomen was desufflated of air. The instruments removed from the abdomen and the vagina vaginal sweep was negative. Port sites on the abdomen were closed with 4-0 Monocryl interrupted sutures and Steri's and windows were applied. She was awoken and taken recovery in stable condition. Grafts/Implants Used: None - Complications None - Admit VTE Documentation VTE Present on Admission: No Multi Select Codes - Urinary/Genital Urinary/Genital CPT Codes: 29785 Cystoscopy, 76691 LAVH+BS/O >250gr Uterus, 5 4420 Lysis of adhesions, laproscopic
[2019-05-29] MEDS: Vasopressin 20 UNITS/ML Vial (10:07)
[2019-05-29] MEDS: Lactated Ringers 1,000 ML 70 ML IV ×2 (10:30→12:42)
[2019-05-29] MEDS: Ondansetron 4 MG/2 ML Vial IV (11:37)
[2019-05-29] MEDS: Ketorolac 30 MG/ML Syringe IV ×2 (14:41→18:49)
[2019-05-29 17:29] LABS: Absolute Lymphocyte Count 0.55 X10^3/uL (0.83-4.51); Absolute Neutrophil Count 13.1 X10^3/uL (2.0-7.7); Basophil# 0.02 X10^3/uL; Basophil% 0.1 % (0-1); Hematocrit 40.2 % (37-47); Hemoglobin 13.6 g/dL (12.0-15.0); Lymphocyte # 0.55 X10^3/ul (4.0); Lymphocyte % 3.8 % (19-41); Mean Corp Hgb Conc 33.8 g/dL (32-36); Mean Corpuscular Hgb 32.2 pg (27.0-32.0); Mean Corpuscular Volume 95.3 fL (81-99); Mean Platelet Vol. 11.5 fl (6.2-12.0); Monocyte# 0.72 X10^3/uL; NRBC Flagged by Analyzer 0 % (0-5); Neutrophil # 13.05 X10^3/uL (2.7-7.7); Neutrophil % 90.7 % (47-70); POSITIVE DIFFERENTIAL YES; Platelet Count 190 K/mm3 (150-450); RBC Distribution Width CV 11.5 % (11.6-14.6); Red Blood Count 4.22 M/mm3 (4.2-5.4); White Blood Count 14.4 K/mm3 (4.4-11.0)
[2019-05-29 17:50] LABS: Differential Indicated SCAN CRITERIA MET
[2019-05-29 18:10] LABS: Platelet Estimate ADEQUATE (ADEQ)
[2019-05-29 18:11] LABS: Anisocytosis RARE; Macrocytosis RARE; Red Cell Morphology N CHROM NORMAL (NORM C&C)
[2019-05-29] MEDS: 0.9% NaCl Peripheral Flush Adult/Peds IV (18:49)
[2019-05-29] MEDS: HYDROmorphone 1 MG/ML Syringe IV (18:54)
--- NOTE | 2019-05-29 19:17 | PN.OBGYN_ITS ---
Subjective: Patient evaluated for increased vaginal bleeding. She had saturated a pad in a little over an hour. Vital signs are stable with a borderline elevated blood pressure and repeat hemoglobin is within normal limits. Several large clots 50 sent pea-sized removed from the vaginal vault and some bright red oozing seeming on the edge of the cuff the cuff was palpated to be intact. Monsel's paste used along the top of the cuff and then Xeroform packing inserted in the vagina to provide pressure. Patient tolerated procedure well and is comfortable with packing in place. Dilaudid given IV. - Physical Exam General: Alert, Oriented x3 Vital Signs Temp Pulse Resp BP Pulse Ox 98.6 F 80 18 141/78 H 98 05/29/19 18:34 05/29/19 18:34 05/29/19 18:34 05/29/19 18:34 05/29/19 18:34 Oxygen Flow Rate (L/min) 6 Oxygen Delivery Method Room Air Weight: 108 lb 7.479 oz Body Mass Index (BMI) 19.8 Intake and Output for Last 24 Hours 05/27/19 05/28/19 05/29/19 23:59 23:59 23:59 Intake Total 2096.742 / 2096.742 Output Total 1000 / 1000 Balance 1096.742 / 1096.742 Laboratory Tests Past 24 Hrs 05/29/19 05/29/19 05/29/19 06:35 06:50 06:50 WBC 5.5 RBC 4.61 Hgb 14.4 Hct 44.5 MCV 96.5 MCH 31.2 MCHC 32.4 RDW Std Deviation 41.9 RDW Coeff of Morteza 11.9 Plt Count 187 MPV 12.2 H Immature Gran % (Auto) Neut % (Auto) Lymph % (Auto) [place] % (Auto) Eos % (Auto) Baso % (Auto) Absolute Neuts (auto) Absolute Lymphs (auto) Nucleated RBC % Differential Comment Platelet Estimate RBC Morphology Anisocytosis Macrocytosis Urine Test Negative Blood Type O POSITIVE Antibody Screen NEGATIVE 05/29/19 17:24 WBC 14.4 H RBC 4.22 Hgb 13.6 Hct 40.2 MCV 95.3 MCH 32.2 H MCHC 33.8 RDW Std Deviation 40.0 RDW Coeff of Morteza 11.5 L Plt Count 190 MPV 11.5 Immature Gran % (Auto) 0.400 Neut % (Auto) 90.7 H Lymph % (Auto) 3.8 L [place] % (Auto) 5.0 Eos % (Auto) 0.0 Baso % (Auto) 0.1 Absolute Neuts (auto) 13.1 H Absolute Lymphs (auto) 0.55 L Nucleated RBC % 0 Differential Comment SEE COMMENT Platelet Estimate ADEQUATE RBC Morphology N CHROM Anisocytosis RARE Macrocytosis RARE Urine Test Blood Type Antibody Screen POC Glucose 05/29/19 06:48 POC Glucose 128 H Medical Necessity - Tobacco Use Smoking Status: Never smoker Assessment/Plan All Active Problems (Last Reviewed 05/19/19 @ 10:52 by Michelle Rosa) Intramural uterine fibroid (Acute) Abnormal uterine bleeding (Acute) 49-year-old status post LAVH postop day 0 Increased vaginal bleeding postoperatively, Monsel's paste and vaginal packing inserted. Hemoglobin normal. Repeat hemoglobin in several hours and monitor closely. If any further intervention needed recommend surgical evaluation. Reviewed with nursing and patient and her .
[2019-05-29] MEDS: FERRIC SUBSULFATE 8 GM SOLN ×2 (19:36)
--- NOTE | 2019-05-29 21:39 | NURSING ---
Called lab and asked them to draw pt's am CBC now per Dr. Oswald's request. Pt is going back to OR.
[2019-05-29] MEDS: Lactated Ringers 1,000 ML 125 ML IV (21:42)
--- NOTE | 2019-05-29 22:01 | NURSING ---
pt and aware of need to return to surgery this evening due to vaginal bleeding. vs wnl. lab saurav stat cbc. will take down when or ready.
[2019-05-29 22:02] LABS: Hematocrit 34.6 % (37-47); Hemoglobin 11.4 g/dL (12.0-15.0); Mean Corp Hgb Conc 32.9 g/dL (32-36); Mean Corpuscular Hgb 31.6 pg (27.0-32.0); Mean Corpuscular Volume 95.8 fL (81-99); Mean Platelet Vol. 11.8 fl (6.2-12.0); Platelet Count 180 K/mm3 (150-450); RBC Distribution Width CV 11.5 % (11.6-14.6); RBC Distribution Width SD 40.1 fl (35.1-43.9); Red Blood Count 3.61 M/mm3 (4.2-5.4); White Blood Count 12.5 K/mm3 (4.4-11.0)
--- NOTE | 2019-05-29 22:34 | NURSING ---
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
[2019-05-29] MEDS: Estrogens,Conj. 1 Tube 1 DOSE (23:15)
--- NOTE | 2019-05-29 23:20 | PN.OBGYN_ITS ---
Subjective: patient having persistent vaginal bleeding, hg dropped to 11.4 - Physical Exam General: Alert, Oriented x3 Abdomen: Soft, Non Tender, - - bright red vaginal bleeding Vital Signs Temp Pulse Resp BP Pulse Ox 98.1 F 56 L 16 106/67 100 05/29/19 21:35 05/29/19 21:35 05/29/19 21:35 05/29/19 21:35 05/29/19 21:35 Oxygen Flow Rate (L/min) 6 Oxygen Delivery Method Room Air Weight: 108 lb 7.479 oz Body Mass Index (BMI) 19.8 Intake and Output for Last 24 Hours 05/27/19 05/28/19 05/29/19 23:59 23:59 23:59 Intake Total 2726.742 / 2726.742 Output Total 1000 / 1000 Balance 1726.742 / 1726.742 Laboratory Tests Past 24 Hrs 05/29/19 05/29/19 05/29/19 06:35 06:50 06:50 WBC 5.5 RBC 4.61 Hgb 14.4 Hct 44.5 MCV 96.5 MCH 31.2 MCHC 32.4 RDW Std Deviation 41.9 RDW Coeff of Morteza 11.9 Plt Count 187 MPV 12.2 H Immature Gran % (Auto) Neut % (Auto) Lymph % (Auto) [place] % (Auto) Eos % (Auto) Baso % (Auto) Absolute Neuts (auto) Absolute Lymphs (auto) Nucleated RBC % Differential Comment Platelet Estimate RBC Morphology Anisocytosis Macrocytosis Urine Test Negative Blood Type O POSITIVE Antibody Screen NEGATIVE 05/29/19 05/29/19 17:24 21:54 WBC 14.4 H 12.5 H RBC 4.22 3.61 L Hgb 13.6 11.4 L Hct 40.2 34.6 L MCV 95.3 95.8 MCH 32.2 H 31.6 MCHC 33.8 32.9 RDW Std Deviation 40.0 40.1 RDW Coeff of Morteza 11.5 L 11.5 L Plt Count 190 180 MPV 11.5 11.8 Immature Gran % (Auto) 0.400 Neut % (Auto) 90.7 H Lymph % (Auto) 3.8 L [place] % (Auto) 5.0 Eos % (Auto) 0.0 Baso % (Auto) 0.1 Absolute Neuts (auto) 13.1 H Absolute Lymphs (auto) 0.55 L Nucleated RBC % 0 Differential Comment SEE COMMENT Platelet Estimate ADEQUATE RBC Morphology N CHROM Anisocytosis RARE Macrocytosis RARE Urine Test Blood Type Antibody Screen POC Glucose 05/29/19 06:48 POC Glucose 128 H Medical Necessity - Tobacco Use Smoking Status: Never smoker Assessment/Plan All Active Problems (Last Reviewed 05/19/19 @ 10:52 by Michelle Rosa) Intramural uterine fibroid (Acute) Abnormal uterine bleeding (Acute) s/p LAVH pod 0 with postop vaginal bleeding recommend PEUA- stitch of cuff to OR for evaluation
--- NOTE | 2019-05-29 23:22 | OP.PCM_ITS ---
Problem List (1) Abnormal uterine bleeding Status: Acute Comment: plan LAVH LUQ entry (2) Intramural uterine fibroid Status: Acute Comment: discussedlysteda, depot lupron, or lavh discussed. handouts given. needs EMB prior to LAVH BS cysto if she desires surgical intervention Report of Operation Date of Procedure: 05/29/19 Pre-Operative Diagnosis: postop bleeding Post-Operative Diagnosis: same Surgery/Procedure Performed:: pelvic exam under anesthesia, stitch of vaginal cuff Description of Surgical Findings:: right apical cuff bleeding Type of Anesthesia:: MAC Special Medications: ancef Specimen's removed: none Drains: none Estimated Blood Loss (mL): 150 Fluids Replaced: crystalloid Description of Procedure: Patient was taken back to the operating room and was placed under MAC anesthesia was prepped and draped in the normal sterile fashion in the dorsal lithotomy position. Parker catheter was in place. Vagina was examined under anesthesia and acute red bleeding from the right apex of the cuff was seen and was repaired with a single [id number] stitch of 0 Vicryl. Excellent hemostasis was not ed. Vaginal packing soaked in Estrace cream was placed to provide additional support of the area. Patient was awoken and taken recovery in stable condition Grafts/Implants Used: packing - Complications none - Admit VTE Documentation VTE Present on Admission: No VTE Mechan Device Prophylaxis: SCD's Multi Select Codes - Urinary/Genital Urinary/Genital CPT Codes: 54996 PEUA
[2019-05-30] MEDS: Acetaminophen 500 MG Tablet 1000 MG PO ×3 (00:17→12:40)
[2019-05-30] MEDS: Ketorolac 30 MG/ML Syringe IV ×3 (00:17→11:45)
[2019-05-30] MEDS: 0.9% NaCl Peripheral Flush Adult/Peds IV ×4 (00:18→11:53)
[2019-05-30 00:30] VITALS: BP 121/61; PULSE 59; RESP 16; TEMP 36.4; O2SAT 100
[2019-05-30] MEDS: LORazepam 1 MG Tablet PO (00:31)
[2019-05-30 03:11] VITALS: BP 112/61; PULSE 83; RESP 16; TEMP 37.4; O2SAT 97
[2019-05-30 07:37] LABS: Absolute Lymphocyte Count 1.78 X10^3/uL (0.83-4.51); Absolute Neutrophil Count 5.7 X10^3/uL (2.0-7.7); Basophil# 0.03 X10^3/uL; Basophil% 0.4 % (0-1); Eosinophil# 0.05 X10^3/uL; Eosinophils% 0.6 % (0-5); Hematocrit 30.7 % (37-47); Hemoglobin 10.2 g/dL (12.0-15.0); Lymphocyte # 1.78 X10^3/ul (4.0); Lymphocyte % 21.5 % (19-41); Mean Corp Hgb Conc 33.2 g/dL (32-36); Mean Corpuscular Hgb 31.8 pg (27.0-32.0); Mean Corpuscular Volume 95.6 fL (81-99); Mean Platelet Vol. 12.2 fl (6.2-12.0); Monocyte# 0.71 X10^3/uL; Monocyte% 8.6 % (0-10); NRBC Flagged by Analyzer 0 % (0-5); Neutrophil # 5.68 X10^3/uL (2.7-7.7); Neutrophil % 68.8 % (47-70); Platelet Count 147 K/mm3 (150-450); RBC Distribution Width CV 11.9 % (11.6-14.6); RBC Distribution Width SD 40.6 fl (35.1-43.9); Red Blood Count 3.21 M/mm3 (4.2-5.4); White Blood Count 8.3 K/mm3 (4.4-11.0)
[2019-05-30 08:21] LABS: Anion Gap 2 (5-15); BUN 8 mg/dL (7-18); BUN/Creat Ratio 10.3 RATIO (10-20); Calcium,Total 7.7 mg/dL (8.5-10.1); Chloride 106 mmol/L (98-107); Creatinine, Serum 0.78 mg/dL (0.55-1.02); EST Glomerular Filtration Rate 84 mL/min (>60); Est Glom Filt Rate - Afr Amer 102 mL/min (>60); Estimated Creatinine Clearance 68.51 ml/min; Glucose 105 mg/dL (74-106); Potassium 3.9 mmol/L (3.5-5.1); Sodium Level 139 mmol/L (136-145)
[2019-05-30] MEDS: Docusate Sodium 100 MG Capsule PO (08:57)
[2019-05-30] MEDS: oxyCODONE 5 MG Tablet PO (08:57)
[2019-05-30 09:11] VITALS: O2SAT 97
--- NOTE | 2019-05-30 09:40 | PN.OBGYN_ITS ---
Subjective: pain controlled, co bloating and lower belly tightness, no flatus. no CP SOB but some soreness of [place]. little vb - Physical Exam General: Alert, Oriented x3 Abdomen: Soft, Distended, Tender Vital Signs Temp Pulse Resp BP Pulse Ox 99.4 F H 83 16 112/61 97 05/30/19 03:11 05/30/19 03:11 05/30/19 03:11 05/30/19 03:11 05/30/19 09:11 Oxygen Flow Rate (L/min) 6 Oxygen Delivery Method Room Air Weight: 108 lb 7.479 oz Body Mass Index (BMI) 19.8 Intake and Output for Last 24 Hours 05/28/19 05/29/19 05/30/19 23:59 23:59 23:59 Intake Total 2726.742 / 2726.742 1830.42 / 1830.42 Output Total 2350 / 2350 600 / 600 Balance 376.742 / 357.566 0262.42 / 1230.42 Laboratory Tests Past 24 Hrs 05/29/19 05/29/19 05/30/19 17:24 21:54 07:25 WBC 14.4 H 12.5 H RBC 4.22 3.61 L Hgb 13.6 11.4 L Hct 40.2 34.6 L MCV 95.3 95.8 MCH 32.2 H 31.6 MCHC 33.8 32.9 RDW Std Deviation 40.0 40.1 RDW Coeff of Morteza 11.5 L 11.5 L Plt Count 190 180 MPV 11.5 11.8 Immature Gran % (Auto) 0.400 Neut % (Auto) 90.7 H Lymph % (Auto) 3.8 L [place] % (Auto) 5.0 Eos % (Auto) 0.0 Baso % (Auto) 0.1 Absolute Neuts (auto) 13.1 H Absolute Lymphs (auto) 0.55 L Nucleated RBC % 0 Differential Comment SEE COMMENT Platelet Estimate ADEQUATE RBC Morphology N CHROM Anisocytosis RARE Macrocytosis RARE Sodium 139 Potassium 3.9 Chloride 106 Carbon Dioxide 31.0 Anion Gap 2 L BUN 8 Creatinine 0.78 Estim Creat Clear Calc 68.51 Est GFR (MDRD) Af Amer 102 Est GFR (MDRD) Non-Af 84 BUN/Creatinine Ratio 10.3 Glucose 105 Calcium 7.7 L 05/30/19 07:25 WBC 8.3 RBC 3.21 L Hgb 10.2 L Hct 30.7 L MCV 95.6 MCH 31.8 MCHC 33.2 RDW Std Deviation 40.6 RDW Coeff of Morteza 11.9 Plt Count 147 L MPV 12.2 H Immature Gran % (Auto) 0.100 Neut % (Auto) 68.8 Lymph % (Auto) 21.5 [place] % (Auto) 8.6 Eos % (Auto) 0.6 Baso % (Auto) 0.4 Absolute Neuts (auto) 5.7 Absolute Lymphs (auto) 1.78 Nucleated RBC % 0 Differential Comment Platelet Estimate RBC Morphology Anisocytosis Macrocytosis Sodium Potassium Chloride Carbon Dioxide Anion Gap BUN Creatinine Estim Creat Clear Calc Est GFR (MDRD) Af Amer Est GFR (MDRD) Non-Af BUN/Creatinine Ratio Glucose Calcium Medical Necessity - Tobacco Use Smoking Status: Never smoker Assessment/Plan All Active Problems (Last Reviewed 05/19/19 @ 10:52 by Michelle Rosa) Intramural uterine fibroid (Acute) Abnormal uterine bleeding (Acute) patient is s/p lavh and reoperation for vaginal cuff bleeding POD 1 1. routine ERAS protocol postop care- increase ambulation, encourage oral intake and oral control of pain. scds for dvt prophylaxis, vaginal packing removed. reevaluate at noon. anemia secondary to surgical and postop blood loss. encourage iron upon discharge home
--- NOTE | 2019-05-30 09:42 | DCINST_ITS ---
Discharge Diet: No Restrictions Discharge Activity: Return to Normal Activity, May Not Drive, May Shower May resume sexual activity in: 6-8 weeks Call your doctor if your incision/area has: Continuous Slow Oozing, Sudden Increased Bleeding, Increased Pain/ Swelling, Increased Redness, Foul Smelling Discharge Call your doctor if you observe: Fever of 101 or Higher, Inability to urinate, Inability to have a bowel movement, Using more than one pad per hour Allergies/Adverse Reactions: Allergies amoxicillin Allergy (Mild, Verified 05/22/19 09:22) Other clavulanic acid [From Augmentin] Allergy (Mild, Verified 05/22/19 09:22) Other erythromycin base Allergy (Mild, Verified 05/22/19 09:22) Other tramadol Adverse Reaction (Mild, Verified 05/22/19 09:22) other Medications to take at Discharge cholecalciferol (vitamin D3) 2,000 unit capsule 2,000 unit PO DAILY 10/11/17 L.acidoph,Paracasei, B.lactis [Probiotic] 1 ea PO DAILY 05/22/19 Multivitamin [Multivitamins] 1 ea PO DAILY 05/22/19 Naproxen [Naprosyn] 250 - 500 mg PO Q8H PRN PRN #30 tab 05/29/19 Oxycodone HCl/Acetaminophen [Percocet 5-325] 1 - 2 tab PO Q4H PRN PRN 7 Days #15 tab 05/29/19 The following prescriptions were given: Naproxen [Naprosyn] 250 - 500 mg PO Q8H PRN PRN #30 tab PRN Reason: MILD PAIN Transmission Status: Received by [facility] Oxycodone HCl/Acetaminophen [Percocet 5-325] 1 - 2 tab PO Q4H PRN PRN 7 Days #15 tab PRN Reason: Pain Transmission Status: Received by [facility] Primary Care Physician: Kika Faustin [Primary Care Provider] - Test Results: Test results from this visit will be discussed in further detail at your follow- up appointment, if applicable. Please Follow Up With: Suzan Oswald MD - [phone]
[2019-05-30 10:13] VITALS: BP 114/67; PULSE 68; RESP 18; TEMP 36.9; O2SAT 99
--- NOTE | 2019-05-30 12:29 | PCM.PN.OB ---
Subjective: patient recovering well, denies CP, SOB, N, or V. patient is ambulating, voiding ,tolerating adequate po, and pain is controlled with oral medications. - Physical Exam Vital Signs Temp Pulse Resp BP Pulse Ox 98.5 F 68 18 114/67 99 05/30/19 10:13 05/30/19 10:13 05/30/19 10:13 05/30/19 10:13 05/30/19 10:13 Oxygen Flow Rate (L/min) 6 Oxygen Delivery Method Room Air Weight: 108 lb 7.479 oz Body Mass Index (BMI) 19.8 Intake and Output for Last 24 Hours 05/28/19 05/29/19 05/30/19 23:59 23:59 23:59 Intake Total 2726.742 / 2726.742 1830.42 / 1830.42 Output Total 2350 / 2350 2100 / 2100 Balance 376.742 / 376.742 -269.58 / -269.58 Laboratory Tests Past 24 Hrs 05/29/19 05/29/19 05/30/19 17:24 21:54 07:25 WBC 14.4 H 12.5 H RBC 4.22 3.61 L Hgb 13.6 11.4 L Hct 40.2 34.6 L MCV 95.3 95.8 MCH 32.2 H 31.6 MCHC 33.8 32.9 RDW Std Deviation 40.0 40.1 RDW Coeff of Morteza 11.5 L 11.5 L Plt Count 190 180 MPV 11.5 11.8 Immature Gran % (Auto) 0.400 Neut % (Auto) 90.7 H Lymph % (Auto) 3.8 L [place] % (Auto) 5.0 Eos % (Auto) 0.0 Baso % (Auto) 0.1 Absolute Neuts (auto) 13.1 H Absolute Lymphs (auto) 0.55 L Nucleated RBC % 0 Differential Comment SEE COMMENT Platelet Estimate ADEQUATE RBC Morphology N CHROM Anisocytosis RARE Macrocytosis RARE Sodium 139 Potassium 3.9 Chloride 106 Carbon Dioxide 31.0 Anion Gap 2 L BUN 8 Creatinine 0.78 Estim Creat Clear Calc 68.51 Est GFR (MDRD) Af Amer 102 Est GFR (MDRD) Non-Af 84 BUN/Creatinine Ratio 10.3 Glucose 105 Calcium 7.7 L 05/30/19 07:25 WBC 8.3 RBC 3.21 L Hgb 10.2 L Hct 30.7 L MCV 95.6 MCH 31.8 MCHC 33.2 RDW Std Deviation 40.6 RDW Coeff of Morteza 11.9 Plt Count 147 L MPV 12.2 H Immature Gran % (Auto) 0.100 Neut % (Auto) 68.8 Lymph % (Auto) 21.5 [place] % (Auto) 8.6 Eos % (Auto) 0.6 Baso % (Auto) 0.4 Absolute Neuts (auto) 5.7 Absolute Lymphs (auto) 1.78 Nucleated RBC % 0 Differential Comment Platelet Estimate RBC Morphology Anisocytosis Macrocytosis Sodium Potassium Chloride Carbon Dioxide Anion Gap BUN Creatinine Estim Creat Clear Calc Est GFR (MDRD) Af Amer Est GFR (MDRD) Non-Af BUN/Creatinine Ratio Glucose Calcium Medical Necessity - Tobacco Use Smoking Status: Never smoker Assessment/Plan All Active Problems (Last Reviewed 05/19/19 @ 10:52 by Michelle Rosa) Intramural uterine fibroid (Acute) Abnormal uterine bleeding (Acute) patient is s/p lavh and reoperation for vaginal cuff bleeding POD 1 1. routine ERAS protocol postop care- increase ambulation, encourage oral intake and oral control of pain. scds for dvt prophylaxis, vaginal packing removed. anemia secondary to surgical and postop blood loss. dc home now
== END 2019-05-30 14:25 | disposition home or self-care (01) ==
LOC: SDC 06:23 → AC 06:25 → MS3 10:23
PROVIDERS: Anesthesiology; Family Provider Family Medicine; PCP Family Medicine; Referring Provider Obstetrics & Gynecology; Visit Provider Obstetrics & Gynecology
PROC: 0UT9FZZ Resection of Uterus, Via Natural or Artificial Opening With Percutaneous Endoscopic Assistance (ICD-10-PCS; CPT 57200; principal; 2019-05-29 08:05)
PROC: (CPT 57200; principal; 2019-05-29 21:30)
DX: D25.1 Intramural leiomyoma of uterus (principal); N73.6 Female pelvic peritoneal adhesions (postinfective); N99.820 Postprocedural hemorrhage of a genitourinary system organ or structure following a genitourinary system procedure; D62 Acute posthemorrhagic anemia
CPT/HCPCS: 57200; 58554; 36415; 80048; 81025; 82962; 85025; 85027; 86850; 86900; 86901; 88307; J7120; A4216; J2405

== ENCOUNTER → 2019-06-05 17:02 | Outpatient (CLI) | payer OTHER, SELFPAY ==
[2019-06-05 14:42] VITALS: BMI 19.8
== END ==
PROVIDERS: Family Provider Family Medicine; PCP Family Medicine; Referring Provider Obstetrics & Gynecology; Visit Provider Obstetrics & Gynecology
DX: N89.8 Other specified noninflammatory disorders of vagina (principal)
CPT/HCPCS: 87070; 87205

== ENCOUNTER → 2020-03-17 15:26 | Outpatient (CLI) | payer OTHER, SELFPAY ==
[2019-07-10 10:03] VITALS: BMI 19.8
--- NOTE | 2020-03-17 15:26 | BI_ITS ---
MAMMOGRAPHY - BILATERAL SCREENING 3-D TOMOSYNTHESIS REASON FOR EXAM: Female, 50 years old. Routine screening PERTINENT HISTORY: FAM HX MAT GMA AGE 60S -- BILAT IMPLANTS 2004 -- BILAT MOLES REMOVED LATERALLY. TECHNIQUE: 2-D mammograms and 3-D Tomosynthesis of the breast (s) were performed. CAD was performed, along with implant displaced views. COMPARISON: 02/05/2019 FINDINGS: The breast composition is composed of scattered fibroglandular density. Scattered benign calcifications are seen. No dense spiculated masses or suspicious microcalcifications are identified. No architectural distortion is identified. There is no skin thickening or retraction. Implants are intact and free of complication There has been no significant change since the prior study. BI/SCREEN MAMM (CAD) W/MIC BILAT IMPRESSION: No mammographic signs of malignancy. Routine yearly mammograms recommended. ASSESSMENT CATEGORY: BIRADS Category 1: Negative. A letter regarding these results will be sent to the patient by the facility within 30 days. FOLLOW UP RECOMMENDATION: Yearly follow up mammogram recommended. (A) Approximately 10% of breast cancers are not detected by mammography. A normal mammogram should not delay biopsy of a clinically suspicious abnormality. Electronically Signed: Marco Black MD at 7:39 EDT , Service support ,
== END ==
PROVIDERS: PCP Family Medicine; Referring Provider Obstetrics & Gynecology; Visit Provider Obstetrics & Gynecology
DX: Z12.31 Encounter for screening mammogram for malignant neoplasm of breast (principal)
CPT/HCPCS: 77063; 77067

== ENCOUNTER → 2020-03-19 07:29 | Outpatient (CLI) | payer OTHER, SELFPAY ==
[2020-03-18 11:26] VITALS: BMI 19.8
[2020-03-19 10:51] LABS: ALB/GLOB Ratio 1.1 RATIO (0.9-2.4); AST(SGOT) 13 U/L (15-37); Alanine Aminotransfer ALT/SGPT 22 U/L (13-56); Albumin, Serum 3.5 g/dL (3.2-5.0); Alkaline Phosphatase 71 U/L (45-117); Anion Gap 4 (5-15); BUN 21 mg/dL (7-18); BUN/Creat Ratio 26.8 RATIO (10-20); Calcium,Total 8.3 mg/dL (8.5-10.1); Chloride 104 mmol/L (98-107); Cholesterol 189 mg/dL (200); Creatinine, Serum 0.78 mg/dL (0.55-1.02); EST Glomerular Filtration Rate 83 mL/min (>60); Est Glom Filt Rate - Afr Amer 100 mL/min (>60); Globulin 3.1 g/dL (2.2-4.2); Glucose 83 mg/dL (74-106); High Density Lipoprotein 91 mg/dL; Potassium 3.7 mmol/L (3.5-5.1); Protein, Total 6.6 g/dL (6.4-8.2); Sodium Level 136 mmol/L (136-145); Thyroid Stim Hormone (TSH) 2.13 uIU/mL (0.358-3.74); Triglycerides 56 mg/dL; Very Low Density Lipoprotein 11 mg/dL (5-40)
[2020-03-19 11:47] LABS: Vitamin D,25 Hydroxy 51.2 ng/mL
== END ==
PROVIDERS: PCP Family Medicine; Referring Provider Obstetrics & Gynecology; Visit Provider Obstetrics & Gynecology
DX: Z01.419 Encounter for gynecological examination (general) (routine) without abnormal findings (principal); Z13.21 Encounter for screening for nutritional disorder; Z13.220 Encounter for screening for lipoid disorders; Z13.1 Encounter for screening for diabetes mellitus
CPT/HCPCS: 36415; 80053; 80061; 82306; 84443; 87086

== ENCOUNTER → 2021-01-26 11:12 | Outpatient (CLI) | payer OTHER, SELFPAY ==
[2021-01-26 08:50] VITALS: BMI 19.7
[2021-01-26 11:40] LABS: Absolute Neutrophil Count 3.8 X10^3/uL (2.0-7.7); Basophil# 0.04 X10^3/uL; Basophil% 0.7 % (0-1); Eosinophil# 0.08 X10^3/uL; Eosinophils% 1.3 % (0-5); Hematocrit 42.3 % (37-47); Hemoglobin 13.8 g/dL (12.0-15.0); Lymphocyte % 26.9 % (19-41); Mean Corp Hgb Conc 32.6 g/dL (32-36); Mean Corpuscular Hgb 31.9 pg (27.0-32.0); Mean Corpuscular Volume 97.7 fL (81-99); Mean Platelet Vol. 11.7 fl (6.2-12.0); Monocyte# 0.45 X10^3/uL; Monocyte% 7.6 % (0-10); NRBC Flagged by Analyzer 0 % (0-5); Neutrophil # 3.76 X10^3/uL (2.7-7.7); Neutrophil % 63.2 % (47-70); Platelet Count 217 K/mm3 (150-450); RBC Distribution Width CV 11.9 % (11.6-14.6); RBC Distribution Width SD 42.7 fl (35.1-43.9); Red Blood Count 4.33 M/mm3 (4.2-5.4)
[2021-01-30 07:46] LABS: Immunoglobulin E 3 IU/mL (6-495)
[2021-01-31 03:06] LABS: Alternaria tenuis <0.10 kU/L (Class 0); Ash, White <0.10 kU/L (Class 0); Aspergillus fumigatus <0.10 kU/L (Class 0); Bermuda Grass <0.10 kU/L (Class 0); Birch <0.10 kU/L (Class 0); Black Walnut <0.10 kU/L (Class 0); Cat Hair / Dander,Stand <0.10 kU/L (Class 0); Cedar, Mountain <0.10 kU/L (Class 0); Cladosporium herbarum <0.10 kU/L (Class 0); Cockroach, American <0.10 kU/L (Class 0); Cottonwood <0.10 kU/L (Class 0); D farinae Mite <0.10 kU/L (Class 0); D pteronyssinus <0.10 kU/L (Class 0); Dog Epithelia <0.10 kU/L (Class 0); Elm, American White <0.10 kU/L (Class 0); Immunoglobulin E 3 IU/mL (6-495); Maple/Box Elder <0.10 kU/L (Class 0); Mulberry, White <0.10 kU/L (Class 0); Oak, White <0.10 kU/L (Class 0); Pecan <0.10 kU/L (Class 0); Penicillium Notatum <0.10 kU/L (Class 0); Pigweed, Rough <0.10 kU/L (Class 0); Ragweed, Short/Common <0.10 kU/L (Class 0); Russian Thistle <0.10 kU/L (Class 0); Sheep Sorrel <0.10 kU/L (Class 0); Sycamore, American <0.10 kU/L (Class 0); Timothy Grass <0.10 kU/L (Class 0)
[2021-01-31 10:04] LABS: Mouse Urine <0.10 kU/L (Class 0)
== END ==
PROVIDERS: PCP Family Medicine; Referring Provider Internal Medicine Critical Care Medicine; Visit Provider Internal Medicine Critical Care Medicine
DX: R05 Cough (principal)
CPT/HCPCS: 36415; 82785; 85025; 86003

== ENCOUNTER → 2021-02-04 08:11 | Outpatient (CLI) | payer OTHER, SELFPAY ==
[2021-01-26 08:50] VITALS: BMI 19.7
--- NOTE | 2021-02-05 05:56 | PFTCOMP_ITS ---
COMPLETE PULMONARY FUNCTION TEST INTERPRETATION Brief HPI: Patient is a 50 year old female, currently under the care of Dr. Deng, who presents to [facility] for complete pulmonary function tests secondary to diagnosis of chronic cough. Respiratory therapist reports good effort and reproducible results. Interpretation: Forced expiration spirometry shows no large airways obstructive ventilatory defect with an FEV1 of 98% predicted. There is no significant bronchodilator response by strict ATS criteria. Spirograms are of good quality and plateau slowly, indicating slowly emptying areas of the lungs. The respiratory flow volume loop shows decreased expiratory flow rates at high lung volumes consistent with small airways obstruction. Lung volumes by body plethysmography show a normal total lung capacity at 4.78 L, 104% predicted. All other lung volumes are within normal limits. Diffusion capacity by carbon monoxide is normal at 132% predicted. The airway resistance is slightly elevated. No previous pulmonary function tests were available for review. Impression: Normal complete PFT with some stigmata of possible small airways disease
== END ==
PROVIDERS: PCP Family Medicine; Referring Provider Internal Medicine Critical Care Medicine; Visit Provider Internal Medicine Critical Care Medicine
DX: R05 Cough (principal)
CPT/HCPCS: 94060; 94726; 94729

== ENCOUNTER → 2021-04-06 07:16 | Outpatient (CLI) | payer OTHER, SELFPAY ==
[2021-03-22 15:49] VITALS: BMI 19.5
--- NOTE | 2021-04-06 07:18 | BI_ITS ---
MAMMOGRAPHY - BILATERAL SCREENING REASON FOR EXAM: Female, 51 years old. Routine annual screening examination. PERTINENT HISTORY: Grandmother with breast cancer. Bilateral breast implants. TECHNIQUE: Digital bilateral breast mic (3D mammographic acquisition) in the CC and MLO projections. 2-D mediolateral oblique (MLO) and craniocaudad (CC) views of both breasts were obtained. CAD: Full Field Digital Mammography with Computer Added Detection was performed. COMPARISON: Comparison is made with prior study dated 03/17/2020 and 02/05/2019. FINDINGS: Breast Composition: The breasts are heterogeneously dense, which may obscure small masses. There are no dominant masses or suspicious calcifications. Stable appearance of the bilateral breast implants presents No other significant abnormalities are identified. There has been no significant change since the prior study. BI/SCRN MAMM (CAD)W/MIC BILAT IMPRESSION: Stable bilateral screening mammogram. Yearly follow-up mammogram recommended. (A) ASSESSMENT CATEGORY: BIRADS Category 2: Benign. A letter regarding these results will be sent to the patient by the facility within 30 days. Approximately 10% of breast cancers are not detected by mammography. A normal mammogram should not delay biopsy of a clinically suspicious abnormality. [id number] Electronically Signed: Porter Engle MD at 8:23 EDT , Service support ,
== END ==
PROVIDERS: PCP Family Medicine; Referring Provider Obstetrics & Gynecology; Visit Provider Obstetrics & Gynecology
DX: Z12.31 Encounter for screening mammogram for malignant neoplasm of breast (principal); Z80.3 Family history of malignant neoplasm of breast
CPT/HCPCS: 77063; 77067

== ENCOUNTER → 2021-08-16 07:46 | Outpatient (CLI) | payer OTHER, SELFPAY ==
--- NOTE | 2021-08-16 07:50 | ECHOD_ITS ---
Reason For Study: HTN Procedure This was a 2D Doppler, Color Flow transthoracic echocardiogram. Patient became very dizzy at apical images and was scanned supine for remainder of test. The exam was of adequate technical quality. Exam performed in department. Left Ventricle Normal LV size. Left ventricular systolic function is normal. The estimated ejection fraction is 65 %. No evidence for diastolic dysfunction. No regional wall motion abnormalities noted. Right Ventricle Normal RV size. Normal systolic function. Atria Normal left atrium. Normal right atrium. No doppler evidence for ASD. Mitral Valve There is no mitral annular calcification. Normal mitral valve. Mild (1+) mitral valve insufficiency. Tricuspid Valve Normal tricuspid valve. Mild eccentric tricuspid valve insufficiency. Right ventricular systolic pressure estimated to be 22 mmHg. Aortic Valve Trisinus/trileaflet aortic valve. Normal aortic valve. Pulmonic Valve The pulmonic valve is not well visualized. Great Vessels The aortic root is not well visualized. Pericardium/Pleural Trivial pericardial effusion. There are no echocardiographic indications of cardiac tamponade. MMode/2D Measurements & Calculations LVIDd: 4.1 cm IVSd: 0.85 cm LA dimension: 2.9 cm LVIDs: 2.5 cm LVPWd: 0.97 cm FS: 38.7 % LAV(MOD-bp): 34.0 ml LA A4 area: 11.8 cm2 RA A4 area: 9.0 cm2 LAV(MOD-bp) Indexed: 23.0 ml/m2 LAV(MOD-sp2): 36.8 ml LAV(MOD-sp4): 27.0 ml Time Measurements MV dec time: 0.27 sec Doppler Measurements & Calculations MV E max seng: 92.5 cm/sec Lat Peak E' Seng: 10.1 cm/sec Med Peak E' Seng: 8.8 cm/sec MV A max seng: 74.4 cm/sec E/E' lat: 9.1 E/E' med: 10.5 MV E/A: 1.2 MV V2 max: 95.1 cm/sec MV P1/2t max seng: 96.6 cm/sec Ao V2 max: 123.1 cm/sec MV max P.6 mmHg MV P1/2t: 99.7 msec Ao max P.1 mmHg MV V2 mean: 43.1 cm/sec MV dec slope: 284.0 cm/sec2 MV mean P.96 mmHg MVA(P1/2t): 2.2 cm2 MV V2 VTI: 33.3 cm LV V1 max: 105.7 cm/sec PA V2 max: 113.6 cm/sec TR max seng: 217.6 cm/sec LV V1 max P.5 mmHg TR max P.9 mmHg ECHO/Echo Complete Interpretation Summary Left ventricular systolic function is normal. The estimated ejection fraction is 65 %. Mild (1+) mitral valve insufficiency. Mild eccentric tricuspid valve insufficiency. Trivial pericardial effusion. There are no echocardiographic indications of cardiac tamponade. Right ventricular systolic pressure estimated to be 22 mmHg. No evidence for diastolic dysfunction. Ordering Physician: Rob Carter Referring Physician: Kika Faustin Performed By: Sudarshan Nowak, MONE
--- NOTE | 2021-08-16 07:50 | RDU_ITS ---
Reason For Study: HTN Right Renal Artery Left Renal Artery Right renal artery ostium Left renal artery ostium 94.8/34.5 134.3/44.3 RSV/EDV. PSV/EDV. Right renal artery proximal Left renal artery proximal PSV/EDV 129.0/34.7 PSV/EDV. 120.4/34.5 . Right renal artery mid 116.1/54.7 Left renal artery mid 89.3/29.0 PSV/EDV. PSV/EDV . Right renal artery distal Left renal artery distal 124.9/39.3 109.4/52.8 PSV/EDV. PSV/EDV. Right Renal Parenchyma Left Renal Parenchyma Upper Pole Medula 30.0/10.9 Left upper pole medulla 20.2/7.9 PSV/EDV. PSV/EDV . Right upper pole medulla EDR .36 . Left upper pole medulla EDR .39 . Right upper pole medulla R.I. .64 . Left upper pole medulla R.I. .61 . Upper Kirt Cortx 16.3/7.2 PSV/EDV. UP Cortex 24.5/9.8 PSV/EDV. Right upper pole cortex EDR .44 . Left upper pole cortex EDR .4 . Right upper pole cortex R.I. .56 . Left upper pole cortex R.I. .6 . Right lower Pole medulla 19.1/8.1 Left lower Pole medulla 23.9/10.4 PSV/EDV . PSV/EDV . Right lower pole medulla EDR .43 . Left lower pole medulla EDR .43 . Right lower pole medulla R.I. .57 . Left lower pole medulla R.I. .57 . Lower Pole Cortex 20.9/7.2 PSV/EDV. Lower Pole Cortx 20.8/8.5 PSV/EDV. Right lower pole cortex EDR .34 . Left lower pole cortex EDR .41 . Right lower pole cortex R.I. .66 . Left lower pole cortex R.I. .59 . Right Renal Hilar Left Renal Hilar Right Hilar avg 38.6/14.7 PSV/EDV. LT Hilar avg 58.1/18.5 PSV/EDV . Right hilar acceleration time 60 Left hilar acceleration time 50 m/sec. m/sec. Right Renal Dimensions Left Renal Dimensions Right kidney size 10.88 cm . Left kidney size 11.75 cm . Right cortical dimension 1.19 cm . Left cortical dimension 1.18 cm . Aorta Proximal abdominal aorta 1.34 x 1.46 cm . Proximal abdominal aorta peak systolic velocity is 103.6 cm/sec . Distal abdominal aorta 1.34 x 1.35 cm . Distal abdominal aorta peak systolic velocity is 83.8 cm/sec . Normal renal veins bilat. VL/Renal Artery Duplex Ultrasound Interpretation Summary Bilateral renal arteries with less than 60% stenosis. Ordering Physician: Rob Carter Performed By: Yan Post RVT
--- NOTE | 2021-08-16 08:17 | EKG12_ITS ---
Test Reason : LOW HEART Blood Pressure : / mmHG Vent. Rate : 048 BPM Atrial Rate : 048 BPM P-R Int : 136 ms QRS Dur : 082 ms QT Int : 462 ms P-R-T Axes : 069 090 084 degrees QTc Int : 412 ms Marked sinus bradycardia Nonspecific T wave abnormality Abnormal ECG Confirmed by MD RAYA, CUCO ([id number]), editor book ADOLFO MASTERSON ([id number]) on 08/17/2021 10:07:47 AM Referred By: RAUDEL Confirmed By:CUCO DOS SANTOS MD
[2021-08-16 08:35] LABS: Bedside Glucose 74 mg/dL (70-110)
== END ==
PROVIDERS: PCP Family Medicine; Visit Provider Internal Medicine Cardiovascular Disease
DX: I10 Essential (primary) hypertension (principal)
CPT/HCPCS: 82962; 93005; 93306; 93975

== ENCOUNTER → 2021-08-17 10:10 | Outpatient (CLI) | payer OTHER, SELFPAY | PROVIDERS: PCP Family Medicine; Visit Provider Nurse Practitioner Women's Health | DX: N39.0 Urinary tract infection, site not specified (principal) | CPT/HCPCS: 87086; 87088 ==

== ENCOUNTER 2021-10-11 17:25 | Outpatient (CLI) | payer BC, SELFPAY | END 2021-10-11 23:59 | disposition home or self-care (01) | PROVIDERS: PCP Family Medicine; Visit Provider Nurse Practitioner Women's Health | DX: R39.15 Urgency of urination (principal) | CPT/HCPCS: 87086; 87088 ==

== ENCOUNTER → 2021-12-29 | Outpatient (CLI) | payer BC, SELFPAY ==
[2021-12-29 10:32] LABS: Anion Gap 6 (5-15); BUN 18 mg/dL (7-18); BUN/Creat Ratio 23.6 RATIO (10-20); Calcium,Total 8.5 mg/dL (8.5-10.1); Chloride 100 mmol/L (98-107); Creatinine, Serum 0.76 mg/dL (0.55-1.02); EST Glomerular Filtration Rate 85 mL/min (>60); Est Glom Filt Rate - Afr Amer 103 mL/min (>60); Glucose 93 mg/dL (74-106); Potassium 4.2 mmol/L (3.5-5.1); Sodium Level 137 mmol/L (136-145)
== END | disposition home or self-care (01) ==
LOC: MTLAB 08:19
PROVIDERS: PCP Family Medicine; Referring Provider Physician Assistant Medical; Visit Provider Physician Assistant Medical
DX: I10 Essential (primary) hypertension (principal)
CPT/HCPCS: 36415; 80048

== ENCOUNTER → 2022-04-20 | Outpatient (CLI) | payer OTHER, SELFPAY | END | disposition home or self-care (01) | LOC: LABSPEC 10:14 | PROVIDERS: PCP Family Medicine; Visit Provider Obstetrics & Gynecology | DX: B37.3 Candidiasis of vulva and vagina (principal) | CPT/HCPCS: 87070; 87205 ==

== ENCOUNTER → 2022-06-20 | Outpatient (CLI) | payer OTHER, SELFPAY ==
--- NOTE | 2022-06-20 15:05 | BI_ITS ---
MAMMOGRAPHY - BILATERAL SCREENING REASON FOR EXAM: Female, 52 years old. Routine annual screening examination. PERTINENT HISTORY: Grandmother with breast cancer. Bilateral breast implants. TECHNIQUE: Digital bilateral breast mic (3D mammographic acquisition) in the CC and MLO projections. 2-D mediolateral oblique (MLO) and craniocaudad (CC) views of both breasts were obtained. CAD: Full Field Digital Mammography with Computer Added Detection was performed. COMPARISON: Comparison is made with prior study 04/06/2021 and 03/17/2020. FINDINGS: Breast Composition: The breasts are heterogeneously dense, which may obscure small masses. There are no dominant masses or suspicious calcifications. Stable appearance of the bilateral breast implants. No other significant abnormalities are identified. There has been no significant change since the prior study. BI/SCRN MAMM (CAD)W/MIC BILAT IMPRESSION: Stable bilateral screening mammogram. Yearly follow-up mammogram recommended. (A) ASSESSMENT CATEGORY: BIRADS Category 2: Benign. A letter regarding these results will be sent to the patient by the facility within 30 days. Approximately 10% of breast cancers are not detected by mammography. A normal mammogram should not delay biopsy of a clinically suspicious abnormality. [id number] Electronically Signed: Porter Engle MD at 8:20 EDT ,
== END | disposition home or self-care (01) ==
LOC: OPBI 15:04
PROVIDERS: PCP Family Medicine; Referring Provider Obstetrics & Gynecology; Visit Provider Obstetrics & Gynecology
DX: Z12.31 Encounter for screening mammogram for malignant neoplasm of breast (principal); Z80.3 Family history of malignant neoplasm of breast; Z98.82 Breast implant status
CPT/HCPCS: 77063; 77067

== ENCOUNTER → 2023-07-04 | Outpatient (CLI) | payer OTHER, SELFPAY ==
--- NOTE | 2023-07-04 07:53 | BI_ITS ---
MAMMOGRAPHY - BILATERAL SCREENING REASON FOR EXAM: Female, 53 years old. Routine annual screening examination. PERTINENT HISTORY: Grandmother with breast cancer. Bilateral breast implants. TECHNIQUE: Digital bilateral breast mic (3D mammographic acquisition) in the CC and MLO projections. 2-D mediolateral oblique (MLO) and craniocaudad (CC) views of both breasts were obtained. CAD: Full Field Digital Mammography with Computer Added Detection was performed. COMPARISON: Comparison is made with prior study dated June 20, 2022 and December 05, 2020. FINDINGS: Breast Composition: The breasts are heterogeneously dense, which may obscure small masses. There are no dominant masses or suspicious calcifications. Stable appearance of the bilateral breast implants. No other significant abnormalities are identified. There has been no significant change since the prior study. BI/SCRN MAMM (CAD)W/MIC BILAT IMPRESSION: Stable bilateral screening mammogram. Yearly follow-up mammogram recommended. (A) ASSESSMENT CATEGORY: BIRADS Category 2: Benign. A letter regarding these results will be sent to the patient by the facility within 30 days. Approximately 10% of breast cancers are not detected by mammography. A normal mammogram should not delay biopsy of a clinically suspicious abnormality. [id number] Electronically Signed: Porter Engle MD at 9:26 EST ,
== END | disposition home or self-care (01) ==
LOC: OPBI 07:52
PROVIDERS: PCP Family Medicine; Referring Provider Obstetrics & Gynecology; Visit Provider Obstetrics & Gynecology
DX: Z12.31 Encounter for screening mammogram for malignant neoplasm of breast (principal); Z80.3 Family history of malignant neoplasm of breast
CPT/HCPCS: 77063; 77067

== ENCOUNTER → 2024-05-14 | Outpatient (CLI) | payer OTHER, SELFPAY ==
--- NOTE | 2024-05-14 08:16 | BI_ITS ---
MAMMOGRAPHY - BILATERAL SCREENING REASON FOR EXAM: Female, 54 years old. Routine annual screening examination. PERTINENT HISTORY: Grandmother with breast cancer. History of bilateral breast implants TECHNIQUE: Digital bilateral breast mic (3D mammographic acquisition) in the CC and MLO projections. 2-D mediolateral oblique (MLO) and craniocaudad (CC) views of both breasts were obtained. CAD: Full Field Digital Mammography with Computer Added Detection was performed. COMPARISON: Comparison is made with prior study dated July 04, 2023 and June 20, 2022. FINDINGS: Breast Composition: The breasts are heterogeneously dense, which may obscure small masses. There are no dominant masses or suspicious calcifications. Stable appearance of the bilateral breast implants. No other significant abnormalities are identified. There has been no significant change since the prior study. BI/SCRN MAMM (CAD)W/MIC BILAT IMPRESSION: Stable bilateral screening mammogram. Yearly follow-up mammogram recommended. (A) ASSESSMENT CATEGORY: BIRADS Category 2: Benign. A letter regarding these results will be sent to the patient by the facility within 30 days. Approximately 10% of breast cancers are not detected by mammography. A normal mammogram should not delay biopsy of a clinically suspicious abnormality. [id number] Electronically Signed: Porter Engle MD at 9:31 EDT ,
== END | disposition home or self-care (01) ==
LOC: OPBI 08:16
PROVIDERS: PCP Family Medicine; Referring Provider Obstetrics & Gynecology; Visit Provider Obstetrics & Gynecology
DX: Z12.31 Encounter for screening mammogram for malignant neoplasm of breast (principal); Z80.3 Family history of malignant neoplasm of breast
CPT/HCPCS: 77063; 77067

== ENCOUNTER → 2025-07-08 | Outpatient (CLI) | payer OTHER, SELFPAY ==
[2025-07-08 13:08] LABS: Cholesterol 246 mg/dL (<=200); Glucose 87 mg/dL (70-99); Low Density Lipoprotein Calc. 144 mg/dL; Triglycerides 64 mg/dL; Very Low Density Lipoprotein 13 mg/dL (5-40); cholesterol:hdl ratio screen 2.70
== END | disposition home or self-care (01) ==
LOC: MTLAB 09:58
PROVIDERS: PCP Family Medicine; Referring Provider Family Medicine; Visit Provider Family Medicine
DX: Z13.1 Encounter for screening for diabetes mellitus (principal); Z13.220 Encounter for screening for lipoid disorders; Z13.6 Encounter for screening for cardiovascular disorders; E55.9 Vitamin D deficiency, unspecified
CPT/HCPCS: 36415; 80061; 82947

== ENCOUNTER → 2025-08-04 | Outpatient (CLI) | payer OTHER, SELFPAY ==
--- NOTE | 2025-08-04 17:00 | BI_ITS ---
EXAM: SCRN MAMM (CAD)W/MIC BILAT DATE: 08/04/2025 CLINICAL HISTORY: F, Age 55 y/o , BREAST CANCER SCREENING Grandmother with breast cancer. Bilateral breast implants. TECHNIQUE: Procedure Code: [id number] Modality: MG Procedure: SCRN MAMM (CAD)W/MIC BILAT COMPARISON: Prior exam(s) dated May 14, 2024.. FINDINGS: TISSUE DENSITY: There are scattered areas of fibroglandular density. Bilateral Breast Mammographic Findings: No significant masses, calcifications or other abnormalities are identified. Stable appearance of the bilateral breast implants. No suspicious masses, areas of developing architectural distortion, or suspicious calcifications. There has been no significant interval change. BI/SCRN MAMM (CAD)W/MIC BILAT IMPRESSION: Stable bilateral screening mammogram. OVERALL FINAL ASSESSMENT BI-RADS 2: BENIGN RECOMMENDATION: Routine annual follow-up in 1 Year Additional Recommendation none A letter with findings and recommendations will be mailed to the patient. Reading Location: [place] [id number]
== END | disposition home or self-care (01) ==
PROVIDERS: PCP Family Medicine; Referring Provider Obstetrics & Gynecology; Visit Provider Obstetrics & Gynecology
DX: Z12.31 Encounter for screening mammogram for malignant neoplasm of breast (principal); Z80.3 Family history of malignant neoplasm of breast
CPT/HCPCS: 77063; 77067